=== PATIENT | male | born 1965 ===

== ENCOUNTER 2017-08-21 09:56 | Emergency (ER) | payer MEDICAID, OTHER ==
[2017-08-21 09:56] VITALS: BMI 33.0
[2017-08-21] MEDS ORDERED: Naproxen 550 mg Tab PO STA (10:15)
[2017-08-21] MEDS ORDERED: Naproxen 550 mg Tab PO ONE (10:20)
--- NOTE | 2017-08-21 10:29 | C.PDOC ---
History Of Present Illness 51 y/o male presents to ED for evaluation of sharp right posterior shoulder and upper back pain for the last 3 days. Patient states that pain radiates to his neck, and face, and associated with a tinging sensation on his right face. Pain worsens with movement of the right shoulder. Patient denies trying any OTC pain medications. He denies falls/injury, cough, fever, shortness of breath, chest pain, visual changes, sensory changes, extremity weakness, facial droop, slurred speech, headache. Time Seen by Provider: 08/21/17 10:04 Chief Complaint (Nursing): Back Pain History Per: Patient History/Exam Limitations: no limitations Onset/Duration Of Symptoms: Days (3) Current Symptoms Are (Timing): Still Present Quality Of Discomfort: Sharp, "Pain" Severity: Moderate Previous Symptoms: denies: Prior Injury Associated Symptoms: None. denies: Incontinence, New Weakness, New Numbness Exacerbating Factor(s): Movement Additional History Per: Patient Past Medical History Reviewed: Historical Data, Nursing Documentation, Vital Signs Vital Signs: Last Vital Signs Temp 98.4 F 08/21/17 11:44 Pulse 78 08/21/17 11:44 Resp 18 08/21/17 11:44 BP 137/80 08/21/17 11:44 Pulse Ox 96 08/21/17 11:44 - Medical History PMH: Cardia Arrhythmia, CHF, HTN, Hypercholesterolemia Surgical History: Back Surgery, Pacemaker (AICD/PM) - [facility] Procedures CARPAL TUNNEL RELEASE (11/22/14) EXPLOR TEND SHEATH-HAND (11/22/14) INJECT/INFUSE NEC (08/23/13) Family History: States: No Known Family Hx - Social History Hx Tobacco Use: No Hx Alcohol Use: No Hx Substance Use: No - Immunization History Hx Tetanus Toxoid Vaccination: Yes Hx Influenza Vaccination: No Hx Pneumococcal Vaccination: Yes Review Of Systems Except As Marked, All Systems Reviewed And Found Negative. Constitutional: Negative for: Fever, Chills Cardiovascular: Negative for: Chest Pain, Palpitations Respiratory: Negative for: Cough, Shortness of Breath Gastrointestinal: Negative for: Nausea, Vomiting, Abdominal Pain Musculoskeletal: Positive for: Neck Pain, Shoulder Pain (right), Back Pain ( upper) Skin: Negative for: Rash, Bruising Neurological: Positive for: Other (tingling sensation to face). Negative for: Weakness, Numbness, Change in Speech, Headache, Dizziness Physical Exam - Physical Exam Appears: Well, Non-toxic, Other (In mild pain, anxious) Skin: Warm, Dry, No Rash, Other (no tender/palpable temporal arteries) Head: Atraumatic, Normacephalic Eye(s): bilateral: Normal Inspection, PERRL, EOMI Oral Mucosa: Moist Neck: Normal ROM, No Midline Cervical Tenderness, Paracervical Tenderness ( along right trapezius muscle), No Step Off Deformity, Supple Cardiovascular: Rhythm Regular Respiratory: Normal Breath Sounds, No Rales, No Rhonchi, No Wheezing Gastrointestinal/Abdominal: Normal Exam, Bowel Sounds, Soft, No Tenderness Back: No CVA Tenderness, No Vertebral Tenderness, Muscle Spasm, Paraspinal Tenderness (right thoracic TTP at approx T3 level) Extremity: Normal ROM (FROM at right shoulder joint), Tenderness (right posterior shoulder), Capillary Refill (<2 sec all digits ), No Deformity, No Swelling Extremity: Bilateral: Normal Color And Temperature Neurological/Psych: Oriented x3, Normal Speech, Normal Cognition, Normal Motor, Normal Sensation Gait: Steady ED Course And Treatment O2 Sat by Pulse Oximetry: 95 (on RA) Pulse Ox Interpretation: Normal Progress Note: Patient given PO Naproxen and Flexeril. Reevaluation Time: 11:30 Reassessment Condition: Improved (On re-eval, patient is resting comfortably, reports improvement of pain and states he feels better. He was given Rxs for Naprosyn and Flexeril, and instructed to follow up with PMD/clinic in 1-2 days. He understands he should return to ED if symptoms worsen.) Disposition Counseled Patient/Family Regarding: Diagnosis, Need For Followup, Rx Given - Disposition Referrals: Bladimir Daniel MD [Staff Provider] - Disposition: HOME/ ROUTINE Disposition Time: 11:30 Condition: STABLE Additional Instructions: FOLLOW UP WITH YOUR DOCTOR IN 1-2 DAYS USE MEDICATIONS DIRECTED RETURN TO ER IF SYMPTOMS WORSEN Prescriptions: Cyclobenzaprine [Cyclobenzaprine HCl] 10 mg PO BID PRN #15 tab PRN Reason: Muscle Spasm Naproxen [Naprosyn Tab] 375 mg PO BID PRN #20 tab PRN Reason: pain Instructions: Cervical Radiculopathy (ED) Forms: erento (Urdu) Print Language: CITIZEN OF [place] - POA Present On Arrival: None - Clinical Impression Clinical Impression: Cervical radiculopathy - Scribe Statement The provider has reviewed the documentation as recorded by the Sonaliibe Irvin Daniels All medical record entries made by the Sonaliibe were at my direction and personally dictated by me. I have reviewed the chart and agree that the record accurately reflects my personal performance of the history, physical exam, medical decision making, and the department course for this patient. I have also personally directed, reviewed, and agree with the discharge instructions and disposition.
[2017-08-21 11:45] VITALS: BP 137/80; PULSE 78; RESP 18; TEMP 98.4
[2017-08-23 14:01] VITALS: O2SAT 95
== END 2017-08-21 11:45 | disposition home or self-care (01) ==
LOC: C.ER 09:56
DX: M54.12 Radiculopathy, cervical region (principal)

== ENCOUNTER 2018-01-28 06:14 | Day surgery (SDC) | payer OTHER ==
[2018-01-04 11:13] VITALS: BMI 33.0
[2018-01-28] MEDS ORDERED: Midazolam 2 MG/2 ML VIAL ONE (07:55)
[2018-01-28] MEDS ORDERED: Propofol 10 mg/ml Inj (20 ML) ONE (07:55)
[2018-01-28] MEDS ORDERED: Lactated Ringer's 1,000 ML IV ONE (08:00)
[2018-01-28] MEDS ORDERED: Pantoprazole 40 mg EC Tab PO STA (08:07)
--- NOTE | 2018-01-28 08:07 | CP.SDSHP ---
Same Day Surgery H & P - History Proposed Procedure: EGD Pre-Op Diagnosis: dysphagia - Previous Medical/Surgical History Cardiac: Hypertension, ASHD/CAD, Arrhythmia, Other (hyperlipidemia, ) Neuro: Backaches Previous Surgical History: Spinal surgery. Defilbrillator placement 2002, 2015 - Allergies Allergies: Allergies No Known Allergies Allergy (Verified 08/21/17 10:02) - Physical Exam Vital Signs: Vital Signs 01/28/18 06:30 Temperature 97.2 F L Pulse Rate 66 Respiratory 19 Rate Blood Pressure 129/67 O2 Sat by Pulse 100 Oximetry Mental Status: Alert & Oriented x3 Neuro: WNL Heart: WNL Lungs: WNL GI: WNL - Impression Impression: dysphagia Pt. Evaluated Today:Candidate for Anesthesia & Procedure: Yes - Date & Time Date: 01/28/18 Time: 08:07 Short Stay Discharge - Short Stay Discharge Admitting Diagnosis/Reason for Visit: DYSPHAGIA / HEARTBURN / CHRONIC ISCHEMIC HEART Disposition: HOME/ ROUTINE
[2018-01-28 08:52] VITALS: TEMP 97.1
[2018-01-28 09:45] VITALS: BP 108/67; PULSE 59; RESP 17; O2SAT 97
== END 2018-01-28 09:40 | disposition home or self-care (01) ==
LOC: C.ENDO 06:14
PROVIDERS: ATTEND Internal Medicine Gastroenterology
DX: R13.10 Dysphagia, unspecified (principal); K21.9 Gastro-esophageal reflux disease without esophagitis; K29.70 Gastritis, unspecified, without bleeding; E78.5 Hyperlipidemia, unspecified; I10 Essential (primary) hypertension; I25.10 Atherosclerotic heart disease of native coronary artery without angina pectoris
CPT/HCPCS: 43239; 88305; J2001; J2250; J2704; J3010; J7120

== ENCOUNTER 2018-04-29 06:28 | Day surgery (SDC) | payer OTHER ==
[2018-03-20 19:53] VITALS: BMI 33.0
--- NOTE | 2018-04-29 09:45 | CP.SDSHP ---
Same Day Surgery H & P - History Proposed Procedure: colonoscopy Pre-Op Diagnosis: Family h/o colon cancer/screening - Previous Medical/Surgical History Cardiac: Hypertension, ASHD/CAD, Hx of CHF, Other (hyperlipidemia, gerd, gastritis) Neuro: Backaches Previous Surgical History: Spinal surgery. AICD placement x 2 - Allergies Allergies: Allergies No Known Allergies Allergy (Verified 02/06/18 06:50) - Physical Exam Vital Signs: Vital Signs 04/29/18 07:22 Temperature 97 F L Pulse Rate 76 Respiratory 19 Rate Blood Pressure 138/72 O2 Sat by Pulse 97 Oximetry Mental Status: Alert & Oriented x3 Neuro: WNL Heart: WNL Lungs: WNL GI: WNL - {Optional Preform as Required} Other Pertinent Findings: Cardiology clearance obtained by Dr Feliz. - Impression Impression: family h/o colon cancer (brother)/screening Pt. Evaluated Today:Candidate for Anesthesia & Procedure: Yes - Date & Time Date: 04/29/18 Time: 09:46 Short Stay Discharge - Short Stay Discharge Admitting Diagnosis/Reason for Visit: SCREENING Disposition: HOME/ ROUTINE
[2018-04-29] MEDS ORDERED: Propofol 10 mg/ml Inj (20 ML) ONE ×2 (09:47)
[2018-04-29] MEDS ORDERED: Lactated Ringer's 500 ML IV SCH (10:00)
[2018-04-29 10:23] VITALS: TEMP 97.8
[2018-04-29 10:49] VITALS: O2SAT 100
[2018-04-29 11:28] VITALS: BP 136/70; PULSE 75; RESP 16
== END 2018-04-29 11:16 | disposition home or self-care (01) ==
LOC: C.ENDO 06:28
PROVIDERS: ATTEND Internal Medicine Gastroenterology
DX: D12.8 Benign neoplasm of rectum (principal); Z12.11 Encounter for screening for malignant neoplasm of colon; K57.30 Diverticulosis of large intestine without perforation or abscess without bleeding; K64.8 Other hemorrhoids; I50.9 Heart failure, unspecified; E78.5 Hyperlipidemia, unspecified; K21.9 Gastro-esophageal reflux disease without esophagitis; I11.0 Hypertensive heart disease with heart failure; I25.10 Atherosclerotic heart disease of native coronary artery without angina pectoris; Z80.0 Family history of malignant neoplasm of digestive organs; Z95.810 Presence of automatic (implantable) cardiac defibrillator
CPT/HCPCS: 45380; 88305; J2704; J3010; J7120

== ENCOUNTER 2018-05-25 07:47 | Inpatient (IN) | payer OTHER ==
[2018-05-25] MEDS ORDERED: Midazolam 2 MG/2 ML VIAL ONE (12:37)
[2018-05-25] MEDS ORDERED: ceFAZolin IV 1 gm in Dextrose 2 GM/100 ML BAG IVPB ONE (12:37)
[2018-05-25] MEDS ORDERED: Propofol 10 mg/ml Inj (20 ML) ONE (12:37)
[2018-05-25] MEDS ORDERED: Etomidate 20 mg/10ml Inj IV ONE (12:38)
[2018-05-25] MEDS ORDERED: Rocuronium 10 mg/ml (5 ml) ONE (12:44)
[2018-05-25] MEDS ORDERED: ePHEDrine 50 mg/ml Inj ONE (13:18)
[2018-05-25] MEDS ORDERED: Neostigmine Methylsulfate 3mg/3ml Syringe IV ONE (13:18)
[2018-05-25 13:44] VITALS: BMI 31.7
[2018-05-25] MEDS ORDERED: Oxycodone/Acetaminophen 5/325 mg Tab PO PRN (13:50)
[2018-05-25] MEDS: HYDROmorphone 0.5 mg/0.5 ml ISec IVP PRN ×2 (14:19→14:37)
[2018-05-25] MEDS: Dextrose 5%/0.45% NS 1,000 ML IV SCH (19:35)
[2018-05-25] MEDS: ceFAZolin 1,000 MG in Sodium Chloride 100 ML IVPB SCH (20:55)
[2018-05-25] MEDS ORDERED: PROPAFENONE HCL 225 MG PO SCH (22:00)
--- NOTE | 2018-05-26 01:40 | OP ---
PROCEDURE DATE: 05/25/2018 PREOPERATIVE DIAGNOSIS: Chronic right upper quadrant abdominal pain with bowel obstruction. POSTOPERATIVE DIAGNOSIS: Chronic right upper quadrant abdominal pain with bowel obstruction. PROCEDURE PERFORMED: Exploratory laparoscopy, laparoscopic lysis of adhesions, repair of umbilical hernia. SURGEON: Francis Almanzar MD ANESTHESIA: General. BLOOD LOSS: 30 mL. POSTOPERATIVE CONDITION: Stable. INDICATIONS FOR SURGERY This is a 52-year-old male, status post hospitalization for partial small-bowel obstruction which resolved with an NG tube. He subsequently went home, however, he has had recurrent nausea, right upper quadrant pain, seen by his radiologist and referred for a possible laparoscopic lysis of adhesions. The patient was evaluated, now was admitted for that procedure. GROSS FINDINGS: There were multiple adhesions in the right upper quadrant, mostly of the omentum to the liver. All the adhesions were taken down sharply. There was also some adhesions involving the bowel. These were also taken down. Umbilical hernia was discovered upon, cutdown, and repaired. PROCEDURE IN DETAIL: The patient was taken to the operating room, general anesthesia was administered, and the abdomen was prepped and draped. A periumbilical cut down was performed. A small incarcerated umbilical hernia was identified. The herniated preperitoneal fat was excised, and a blunt port was inserted through this area. The arm was irrigated with CO2. An epigastric and right lower quadrant ports were then placed. There were noted to be dense adhesions to the liver, and these were taken down sharply using Endoshear scissors. Once they had been taken down, the gallbladder was retracted, and the remaining adhesions to the gallbladder were also taken down. There was a couple of adhesions in the small bowel. These were also taken down sharply. There was some oozing at the end of the case but no gross bleeding, and for this reason, a drain was left in the right upper quadrant. The ports were removed. The umbilical hernia was repaired with interrupted heavy Monocryl suture, and the overlying skin was closed with subcuticular Monocryl and glue. The patient tolerated the procedure well. Returned to recovery room in stable condition. Francis Almanzar MD [facility] # [id number]
[2018-05-26] MEDS: Dextrose 5%/0.45% NS 1,000 ML IV SCH ×3 (02:30→14:01)
[2018-05-26] MEDS: ceFAZolin 1,000 MG in Sodium Chloride 100 ML IVPB SCH ×2 (05:10→13:17)
--- NOTE | 2018-05-26 06:01 | CP.PCM.PN ---
Subjective - Date & Time of Evaluation Date of Evaluation: 05/25/18 Time of Evaluation: 18:00 - Subjective Subjective: Pt seen and examined at bedside Objective - Vital Signs/Intake and Output Vital Signs (last 24 hours): Temp Pulse Resp BP Pulse Ox 98.2 F 68 20 119/64 98 05/26/18 04:00 05/26/18 04:00 05/26/18 04:00 05/26/18 04:00 05/26/18 04:00 Intake and Output: 05/25/18 05/26/18 18:59 06:59 Intake Total 550 Output Total 40 20 Balance 510 -20 - Medications Medications: Current Medications Docusate Sodium (Colace) 100 mg PO BID [facility] Last Admin: 05/25/18 19:35 Dose: 100 mg Home Med (Propafenone Hcl [Rythmol]) 225 mg PO Q12 [facility] Hydrochlorothiazide (Hydrodiuril) 25 mg PO DAILY [facility] Dextrose/Sodium Chloride (Dextrose 5%/0.45% Ns 1000 Ml) 1,000 mls @ 80 mls/hr IV .[id number] [facility] Last Admin: 05/26/18 02:30 Dose: Not Given Cefazolin Sodium 1,000 mg/ (Sodium Chloride) 100 mls @ 100 mls/hr IVPB Q8H JERAMY PRN Reason: Protocol Last Admin: 05/26/18 05:10 Dose: 100 mls/hr Ketorolac Tromethamine (Toradol) 30 mg IVP Q6 PRN PRN Reason: pain 8-10 Stop: 05/30/18 13:51 Last Admin: 05/26/18 03:10 Dose: 30 mg Losartan Potassium (Cozaar) 100 mg PO DAILY [facility] Metoprolol Succinate (Toprol Xl) 100 mg PO DAILY [facility] Ondansetron HCl (Zofran Inj) 4 mg IVP Q6 PRN PRN Reason: Nausea/Vomiting Oxycodone/Acetaminophen (Percocet 5/325 Mg Tab) 2 tab PO Q4H PRN PRN Reason: pain Stop: 05/28/18 13:51 Pantoprazole Sodium (Protonix Inj) 40 mg IVP DAILY [facility] Pantoprazole Sodium (Protonix Ec Tab) 40 mg PO DAILY [facility] Rosuvastatin Calcium (Crestor) 20 mg PO HS [facility] Last Admin: 05/25/18 21:43 Dose: 20 mg
[2018-05-26 07:28] LABS: BASO % 0.3 % (0.0-2.0); EOS # 0.1 K/uL (0.0-0.7); EOS % 1.7 % (0.0-4.0); HEMOGLOBIN 12.1 g/dL (12.0-18.0); LYMPH # 1.8 K/uL (1.0-4.3); LYMPH % 19.9 % (20.0-40.0); MEAN CELL VOLUME 86.8 fL (80.0-94.0); MEAN CORPUSCULAR HEMOGLOBIN 29.6 pg (27.0-31.0); MEAN CORPUSCULAR HGB CONC 34.1 g/dL (33.0-37.0); MEAN PLATELET VOLUME 9.3 fL (7.2-11.7); MONO # 0.9 K/uL (0.0-0.8); MONO % 9.7 % (0.0-10.0); NEUT % 68.4 % (50.0-75.0); RBC 4.08 Mil/uL (4.40-5.90); RED CELL DISTRIBUTION WIDTH 13.3 % (11.5-14.5); WHITE BLOOD COUNT 8.8 K/uL (4.8-10.8)
[2018-05-26 07:39] LABS: BLOOD UREA NITROGEN 17 mg/dL (9-20); CALCIUM 8.8 mg/dl (8.6-10.4); GFR AFRICAN-AMERICAN > 60; GFR NON-AFRICAN AMERICAN > 60
[2018-05-26 08:07] VITALS: O2SAT 94
[2018-05-26] MEDS ORDERED: Pantoprazole 40 mg EC Tab PO SCH (10:00)
[2018-05-26] MEDS ORDERED: Metoprolol Succinate 100 mg XL Tab PO SCH (10:00)
[2018-05-26] MEDS ORDERED: Magnesium Hydroxide Susp 30 ml UD PO ONE (10:16)
[2018-05-26 15:57] VITALS: BP 115/70; PULSE 75; RESP 20; TEMP 99.1
--- NOTE | 2018-05-26 21:57 | CP.PCM.DIS ---
Provider - Provider Date of Admission: 05/25/18 07:47 Attending physician: Francis Almanzar MD Time Spent in preparation of Discharge (in minutes): 45 Hospital Course - Lab Results Lab Results: Most Recent Lab Values WBC 8.8 K/uL (4.8-10.8) 05/26/18 07:17 RBC 4.08 Mil/uL (4.40-5.90) L 05/26/18 07:17 Hgb 12.1 g/dL (12.0-18.0) 05/26/18 07:17 Hct 35.4 % (35.0-51.0) 05/26/18 07:17 MCV 86.8 fL (80.0-94.0) 05/26/18 07:17 MCH 29.6 pg (27.0-31.0) 05/26/18 07:17 MCHC 34.1 g/dL (33.0-37.0) 05/26/18 07:17 RDW 13.3 % (11.5-14.5) 05/26/18 07:17 Plt Count 197 K/uL (130-400) 05/26/18 07:17 MPV 9.3 fL (7.2-11.7) 05/26/18 07:17 Neut % (Auto) 68.4 % (50.0-75.0) 05/26/18 07:17 Lymph % (Auto) 19.9 % (20.0-40.0) L 05/26/18 07:17 Harding % (Auto) 9.7 % (0.0-10.0) 05/26/18 07:17 Eos % (Auto) 1.7 % (0.0-4.0) 05/26/18 07:17 Baso % (Auto) 0.3 % (0.0-2.0) 05/26/18 07:17 Neut # (Auto) 6.0 K/uL (1.8-7.0) 05/26/18 07:17 Lymph # (Auto) 1.8 K/uL (1.0-4.3) 05/26/18 07:17 Harding # (Auto) 0.9 K/uL (0.0-0.8) H 05/26/18 07:17 Eos # (Auto) 0.1 K/uL (0.0-0.7) 05/26/18 07:17 Baso # (Auto) 0.0 K/uL (0.0-0.2) 05/26/18 07:17 Sodium 140 mmol/L (132-148) 05/26/18 07:17 Potassium 4.9 mmol/L (3.6-5.2) 05/26/18 07:17 Chloride 100 mmol/L (98-107) 05/26/18 07:17 Carbon Dioxide 33 mmol/L (22-30) H 05/26/18 07:17 Anion Gap 11 (10-20) 05/26/18 07:17 BUN 17 mg/dL (9-20) 05/26/18 07:17 Creatinine 0.9 mg/dL (0.8-1.5) 05/26/18 07:17 Est GFR ( Amer) > 60 05/26/18 07:17 Est GFR (Non-Af Amer) > 60 05/26/18 07:17 Random Glucose 108 mg/dL (75-110) 05/26/18 07:17 Calcium 8.8 mg/dl (8.6-10.4) 05/26/18 07:17 - Hospital Course Hospital Course: Pt seen and evalauted is stable for discharge Discharge Exam - Eye Exam Eye Exam: EOMI, Normal appearance, PERRL Pupil Exam: NORMAL ACCOMODATION, PERRL - ENT Exam ENT Exam: Mucous Membranes Moist - Respiratory Exam Respiratory Exam: Decreased Breath Sounds, Clear to PA & Lateral, NORMAL BREATHING PATTERN - Cardiovascular Exam Cardiovascular Exam: Irregular Rhythm, +S2 Discharge Plan - Follow Up Plan Condition: GOOD Disposition: HOME/ ROUTINE Instructions: Heart Healthy Diet, Heart Failure, Adult (DC), Hernia Repair (DC) , Abdominal Hernia Repair, Laparoscopic Surgery Additional Instructions: Follow up Dr Almanzar in 10 days Tylenol/Advil for pain Resume regular diet Referrals: Francis Almanzar MD [Staff Provider] -
== END 2018-05-26 17:30 | disposition home or self-care (01) | DRG 150 ==
LOC: C.9S 07:47 → EDSTATUS 12:30 → C.6T 13:44
PROVIDERS: ADMIT Surgery; ATTEND Surgery
PROC: 0WQF4ZZ Repair Abdominal Wall, Percutaneous Endoscopic Approach (ICD-10-PCS; 2018-05-25)
PROC: 0DN84ZZ Release Small Intestine, Percutaneous Endoscopic Approach (ICD-10-PCS; principal; 2018-05-25 13:00)
DX: K56.50 Intestinal adhesions [bands], unspecified as to partial versus complete obstruction (principal); K42.0 Umbilical hernia with obstruction, without gangrene; K66.0 Peritoneal adhesions (postprocedural) (postinfection); G89.29 Other chronic pain

== ENCOUNTER 2018-06-02 07:15 | Day surgery (SDC) | payer MEDICAID, OTHER ==
[2018-06-02 07:15] VITALS: BMI 31.7
--- NOTE | 2018-06-02 08:45 | C.PDOC ---
History Of Present Illness 52-year-old male presents to the emergency department with complaints of pain at his surgical site for the past two days, and today had some yellow discharge draining from the area. Patient is recently s/p abdominal wall hernia repair by Dr. Almanzar on 05/25. Patient states he felt fine after surgery but pain started two days ago, and has been worsening since. He denies nausea/vomiting, fever, diarrhea, or any other associated symptoms. Time Seen by Provider: 06/02/18 07:53 Chief Complaint (Nursing): Abnormal Skin Integrity History Per: Patient History/Exam Limitations: no limitations Current Symptoms Are (Timing): Still Present Quality Of Symptoms: Painful, Draining Severity: Mild Past Medical History Reviewed: Historical Data, Nursing Documentation, Vital Signs Vital Signs: Last Vital Signs Temp 97.4 F L 06/02/18 19:45 Pulse 67 06/02/18 19:45 Resp 14 06/02/18 19:45 BP 119/76 06/02/18 19:45 Pulse Ox 100 06/02/18 19:45 - Medical History PMH: Bronchitis, Cardia Arrhythmia, CHF, Gastritis, HTN, Hypercholesterolemia Surgical History: Back Surgery, Endoscopy, Pacemaker (AICD/PM) Other Surgeries: abdominal wall hernia repair - [facility] Procedures CARPAL TUNNEL RELEASE (11/22/14) EXPLOR TEND SHEATH-HAND (11/22/14) INJECT/INFUSE NEC (08/23/13) RELEASE SMALL INTESTINE, PERCUTANEOUS ENDOSCOPIC APPROACH (05/25/18) REPAIR ABDOMINAL WALL, PERCUTANEOUS ENDOSCOPIC APPROACH (05/25/18) Family History: States: Hypertension - Social History Hx Tobacco Use: No Hx Alcohol Use: No Hx Substance Use: No - Immunization History Hx Tetanus Toxoid Vaccination: Yes Hx Influenza Vaccination: No Hx Pneumococcal Vaccination: Yes Review Of Systems Constitutional: Negative for: Fever, Chills Cardiovascular: Negative for: Chest Pain, Palpitations Respiratory: Negative for: Shortness of Breath Gastrointestinal: Positive for: Abdominal Pain. Negative for: Nausea, Vomiting , Diarrhea Skin: Negative for: Rash Physical Exam - Physical Exam Appears: Well, Non-toxic, In Acute Distress (in mild discomfort ) Skin: Normal Color, Warm, Dry, No Rash Eye(s): bilateral: Normal Inspection Oral Mucosa: Moist Cardiovascular: Rhythm Regular, No Murmur Respiratory: Normal Breath Sounds, No Rales, No Rhonchi, No Wheezing Gastrointestinal/Abdominal: Bowel Sounds, Soft, No Tenderness, Other (several well healing laproscopic surgical wounds, most medial wound has eschar, is TTP with mild surrounding erythema, (+) mild induration) Neurological/Psych: Oriented x3 ED Course And Treatment - Laboratory Results Result Diagrams: 06/02/18 09:17 06/02/18 09:17 ECG: Interpreted By Me, Viewed By Me (atrial paced rhythm 73 bpm, normal axis, no acute ST/T wave changes) ECG Interpretation: No Acute Changes O2 Sat by Pulse Oximetry: 98 (RA) Pulse Ox Interpretation: Normal - Radiology CXR: Interpreted by Me, Viewed By Me CXR Interpretation: Yes: No Acute Disease, Other (AICD in place). No: Infiltrates Progress Note: Bloodwork ordered and reviewed. Patient given IV NS bolus, IV Morphine and IV Vancomycin. - Physician Consult Information Physician Contacted: Francis Almanzar Outcome Of Conversation: Discussed patient with his surgeon, he will take patient to OR for drainage of abdominal abscess/postop infection. Disposition - Disposition Disposition: HOSPITALIZED Disposition Time: 10:05 Condition: STABLE - Clinical Impression Clinical Impression: Abdominal wall abscess, Postoperative wound infection - Scribe Statement The provider has reviewed the documentation as recorded by the Scribe (Boyd Patel) All medical record entries made by the Scribe were at my direction and personally dictated by me. I have reviewed the chart and agree that the record accurately reflects my personal performance of the history, physical exam, medical decision making, and the department course for this patient. I have also personally directed, reviewed, and agree with the discharge instructions and disposition. Decision To Admit - Pt Status Changed To: Hospital Disposition Of: SDS- Endo,OR,Cath,IR - . Bed Request Type: Same Day Surgery Admitting Physician: Francis Almanzar Patient Diagnosis: Abdominal wall abscess, Postoperative wound infection
[2018-06-02] MEDS ORDERED: Morphine 4 MG/ML VIAL ONE (09:00)
[2018-06-02] MEDS ORDERED: Vancomycin 1 GM 1 GM/250 ML BAG IV STA (09:20)
[2018-06-02 09:25] LABS: BASO # 0.1 K/uL (0.0-0.2); BASO % 0.7 % (0.0-2.0); EOS # 0.3 K/uL (0.0-0.7); EOS % 3.3 % (0.0-4.0); HEMOGLOBIN 13.5 g/dL (12.0-18.0); LYMPH # 2.4 K/uL (1.0-4.3); LYMPH % 26.3 % (20.0-40.0); MEAN CELL VOLUME 85.5 fL (80.0-94.0); MEAN CORPUSCULAR HEMOGLOBIN 29.1 pg (27.0-31.0); MEAN PLATELET VOLUME 8.6 fL (7.2-11.7); MONO # 0.8 K/uL (0.0-0.8); MONO % 8.4 % (0.0-10.0); NEUT # 5.7 K/uL (1.8-7.0); NEUT % 61.3 % (50.0-75.0); NRBC % 0.1 % (0.0-2.0); RBC 4.63 Mil/uL (4.40-5.90); RED CELL DISTRIBUTION WIDTH 13.3 % (11.5-14.5); WHITE BLOOD COUNT 9.3 K/uL (4.8-10.8)
[2018-06-02 09:43] LABS: INR 1.1; PROTHROMBIN TIME 12.3 SECONDS (9.7-12.2)
[2018-06-02 09:44] LABS: ALB/GLOB RATIO 1.2 (1.0-2.1); ALBUMIN 4.3 g/dL (3.5-5.0); CALCIUM 8.9 mg/dl (8.6-10.4); GFR AFRICAN-AMERICAN > 60; GFR NON-AFRICAN AMERICAN > 60
[2018-06-02 09:45] LABS: BLOOD UREA NITROGEN 20 mg/dL (9-20)
[2018-06-02 09:46] LABS: ALT/SGPT 67 U/L (21-72); AST/SGOT 46 U/L (17-59)
[2018-06-02] MEDS ORDERED: Vancomycin 1 gm/NS 200 ml 1 GM/200 ML BAG IVPB ONE ×2 (10:00→10:15)
--- NOTE | 2018-06-02 12:13 | RAD ---
PROCEDURE: CHEST RADIOGRAPH, 1 VIEW HISTORY: preop COMPARISON: None available. FINDINGS: LUNGS: Clear. PLEURA: No pneumothorax or pleural fluid seen. CARDIOVASCULAR: Left subclavian access AICD/ pacemaker. Cardiomediastinal silhouette at the upper limits of normal in size. OSSEOUS STRUCTURES: Degenerative changes. VISUALIZED UPPER ABDOMEN: Normal. OTHER FINDINGS: None. IMPRESSION: No active disease.
[2018-06-02] MEDS ORDERED: HYDROmorphone 0.5 mg/0.5 ml ISec IVP PRN ×2 (17:23→18:58)
[2018-06-02] MEDS ORDERED: ceFAZolin IV 2 gm in Dextrose 2 GM/50 ML BAG IVPB ONE (18:27)
[2018-06-02] MEDS ORDERED: ceFAZolin IV 1 gm in Dextrose 1 GM/50 ML BAG IVPB ONE (18:27)
[2018-06-02] MEDS ORDERED: Propofol 10 mg/ml Inj (20 ML) ONE (18:33)
[2018-06-02] MEDS ORDERED: Midazolam 2 MG/2 ML VIAL ONE (18:33)
[2018-06-02] MEDS ORDERED: Lidocaine Hydrochloride 10 ML INJ ONE (18:48)
[2018-06-02] MEDS ORDERED: Oxycodone/Acetaminophen 5/325 mg Tab PO PRN ×2 (18:56→19:21)
[2018-06-02] MEDS ORDERED: Lactated Ringer's 1,000 ML IV ONE (18:56)
[2018-06-02 19:19] VITALS: RESP 14
[2018-06-02 19:42] VITALS: BP 119/76; PULSE 67
[2018-06-02 19:54] VITALS: TEMP 97.4
--- NOTE | 2018-06-03 04:04 | OP ---
PROCEDURE DATE: 06/02/2018 PREOPERATIVE DIAGNOSIS: Abdominal wound abscess. POSTOPERATIVE DIAGNOSIS: Abdominal wound abscess. PROCEDURES PERFORMED: Incision and drainage of abdominal wound abscess, excision of abdominal wound eschar. SURGEON: Francis Almanzar MD TYPE OF ANESTHESIA: IV sedation with local. BLOOD LOSS: 15 mL. POSTOPERATIVE CONDITION: Stable. DESCRIPTION OF PROCEDURE: The patient was taken to the operating room. The abdomen was prepped and draped. A right upper quadrant previous drain site eschar was excised via a #11 blade. Underlying pus was drained and cultured. The wound was irrigated with copious amounts of saline solution and packed with wet saline gauze. The patient tolerated the procedure well, returned to recovery room in stable condition. Francis Almanzar MD
[2018-06-03 07:42] VITALS: O2SAT 98
--- NOTE | 2018-06-04 21:10 | CARD ---
APPROVED REPORT EKG Measurement Heart [id number] <Conclusion> Atrial-sensed ventricular-paced rhythm Abnormal ECG
== END 2018-06-02 20:30 | disposition home or self-care (01) ==
LOC: C.ER 07:15 → C.SDS 10:05
PROVIDERS: ATTEND Surgery
DX: T81.4XXA Infection following a procedure, initial encounter (principal); L02.211 Cutaneous abscess of abdominal wall; E78.00 Pure hypercholesterolemia, unspecified; I11.0 Hypertensive heart disease with heart failure; I50.9 Heart failure, unspecified; Z95.810 Presence of automatic (implantable) cardiac defibrillator
CPT/HCPCS: 10060; 71045; 80053; 85025; 85610; 85730; 86850; 86900; 87040; 87070; 96374; 99285; J2250; J2270; J2704; J3010; J3370; J7120

== ENCOUNTER 2018-08-18 11:53 | Emergency (ER) | payer MEDICAID, OTHER ==
[2018-08-18 12:02] VITALS: BMI 38.5
[2018-08-18 12:04] VITALS: TEMP 98.8; O2SAT 96
--- NOTE | 2018-08-18 12:55 | C.PDOC ---
History Of Present Illness 52 y/o male with history of HTN and Pacemaker presents to ED with c/o left sided upper chest wall pain that radiates into left arm/shoulder and to back for 3 days worse with sitting down. Patient reports this pain feels stabbing in shoulder and axilla, and does not feel like chest pain from heart because he knows what that feels like. He states the pain is also worse with certain movements. Patient denies sob, dizziness, change in sensation, fever, chills or injury. Time Seen by Provider: 08/18/18 12:27 Chief Complaint (Nursing): Upper Extremity Problem/Injury History Per: Patient History/Exam Limitations: no limitations Onset/Duration Of Symptoms: Days Current Symptoms Are (Timing): Still Present Quality: "Pain" Past Medical History Reviewed: Historical Data, Nursing Documentation, Vital Signs Vital Signs: Last Vital Signs Temp 98.8 F 08/18/18 12:03 Pulse 68 08/18/18 13:48 Resp 12 08/18/18 13:48 BP 125/84 08/18/18 13:48 Pulse Ox 96 08/18/18 14:24 - Medical History PMH: Bronchitis, Cardia Arrhythmia, CHF, Gastritis, HTN, Hypercholesterolemia Surgical History: Back Surgery (1984), Endoscopy, Pacemaker (AICD/PM) - [facility] Procedures CARPAL TUNNEL RELEASE (11/22/14) EXPLOR TEND SHEATH-HAND (11/22/14) INJECT/INFUSE NEC (08/23/13) RELEASE SMALL INTESTINE, PERCUTANEOUS ENDOSCOPIC APPROACH (05/25/18) REPAIR ABDOMINAL WALL, PERCUTANEOUS ENDOSCOPIC APPROACH (05/25/18) Family History: States: Hypertension - Social History Hx Tobacco Use: No Hx Alcohol Use: No Hx Substance Use: No - Immunization History Hx Tetanus Toxoid Vaccination: Yes Hx Influenza Vaccination: No (2017) Hx Pneumococcal Vaccination: Yes Review Of Systems Constitutional: Negative for: Fever, Chills Cardiovascular: Positive for: Chest Pain. Negative for: Palpitations, Light Headedness Respiratory: Negative for: Cough, Shortness of Breath Gastrointestinal: Negative for: Nausea, Vomiting Musculoskeletal: Positive for: Shoulder Pain, Arm Pain. Negative for: Neck Pain Skin: Negative for: Rash Neurological: Negative for: Weakness, Numbness, Headache, Dizziness Physical Exam - Physical Exam Appears: Non-toxic, No Acute Distress Skin: Warm, Dry, No Rash Head: Atraumatic, Normacephalic Eye(s): bilateral: Normal Inspection Oral Mucosa: Moist Neck: Normal ROM, Supple Chest: Symmetrical, No Tenderness, No Ecchymosis, No Subcutaneous Emphysema, Other (pacemaker to left upper chest wall) Cardiovascular: Rhythm Regular, No Friction Rub, No Murmur Respiratory: Normal Breath Sounds, No Rales, No Rhonchi, No Wheezing Gastrointestinal/Abdominal: Soft, No Tenderness, No Guarding, No Rebound Extremity: Normal ROM, No Tenderness, No Pedal Edema, Capillary Refill (<2 seconds), No Deformity, No Swelling Pulses: Left Radial: Normal Neurological/Psych: Oriented x3, Normal Speech, Normal Motor, Normal Sensation, Other (strength symmetric in all extremities) Extremity: Right: No Drift, Left: No Drift, Upper: No Drift, Lower: No Drift ED Course And Treatment - Laboratory Results Result Diagrams: 08/18/18 12:54 08/18/18 12:54 Lab Interpretation: No Changes Compared To Prior Results ECG: Interpreted By La ECG Rhythm: AV Paced ECG Interpretation: No Acute Changes Rate From EC O2 Sat by Pulse Oximetry: 96 (RA) Pulse Ox Interpretation: Normal Medical Decision Making Medical Decision Making: Impression: Left shoulder and upper back pain Plan: * EKG * Blood work * CXR * UA * Left shoulder xray * Toradol Progress: EKG reviewed. Labs were normal, no leukocytosis or anemia, CMP WNL, troponin negative and no electrolyte abnormality. CXR shows pacemaker, otherwise no active disease. Shoulder Xray was unremarkable. Patient treated with Toradol IV and felt minimal relief. IV Morphine was ordered. On re-evaluation, the patient reports pain has much improve. He still denied chest pain or any SOB. Given patient history had labs and cardiac workup to exclude any ACS. All labs reviewed and unremarkable after 3 day history of symptoms. Based on these negative findings, the patient is stable for discharge. Advise to follow up with PMD Disposition Counseled Patient/Family Regarding: Diagnosis, Need For Followup, Rx Given - Disposition Referrals: Bladimir Daniel MD [Staff Provider] - Disposition: HOME/ ROUTINE Disposition Time: 14:22 Condition: STABLE Additional Instructions: Your labs and xray reports were normal and copies provided to you Take pain medicine as needed Advise follow up with PMD DR Daniel in few days Return to the emergency department at any time if symptoms persist or worsen. 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 - Scribe Statement The provider has reviewed the documentation as recorded by the Sonaliibnitza Martinez All medical record entries made by the Rigo were at my direction and personally dictated by me. I have reviewed the chart and agree that the record accurately reflects my personal performance of the history, physical exam, medical decision making, and the department course for this patient. I have also personally directed, reviewed, and agree with the discharge instructions and disposition.
[2018-08-18 13:00] LABS: BASO % 0.4 % (0.0-2.0); EOS # 0.2 K/uL (0.0-0.7); EOS % 2.4 % (0.0-4.0); LYMPH # 1.9 K/uL (1.0-4.3); MEAN CELL VOLUME 85.7 fL (80.0-94.0); MEAN CORPUSCULAR HEMOGLOBIN 28.8 pg (27.0-31.0); MEAN CORPUSCULAR HGB CONC 33.7 g/dL (33.0-37.0); MONO # 0.7 K/uL (0.0-0.8); MONO % 8.7 % (0.0-10.0); NEUT # 5.1 K/uL (1.8-7.0); NEUT % 64.5 % (50.0-75.0); RBC 4.86 Mil/uL (4.40-5.90); RED CELL DISTRIBUTION WIDTH 13.2 % (11.5-14.5); WHITE BLOOD COUNT 7.9 K/uL (4.8-10.8)
[2018-08-18 13:03] LABS: URINE BILIRUBIN NEGATIVE (NEGATIVE); URINE BLOOD NEGATIVE (NEGATIVE); URINE CLARITY Clear (Clear); URINE COLOR Straw (YELLOW); URINE GLUCOSE (UA) NORMAL (Normal); URINE LEUKOCYTE ESTERASE NEG Leu/uL (Negative); URINE PROTEIN NEGATIVE (NEGATIVE); URINE UROBILINOGEN NORMAL mg/dL (0.2-1.0)
[2018-08-18 13:13] LABS: ALB/GLOB RATIO 1.2 (1.0-2.1); ALBUMIN 4.5 g/dL (3.5-5.0); ALT/SGPT 42 U/L (21-72); AST/SGOT 29 U/L (17-59); BLOOD UREA NITROGEN 16 mg/dL (9-20); GFR NON-AFRICAN AMERICAN > 60
--- NOTE | 2018-08-18 13:15 | RAD ---
Date of service: 08/18/2018 HISTORY: chest pain COMPARISON: 06/02/2018. TECHNIQUE: Chest PA and lateral FINDINGS: LUNGS: No active pulmonary disease. PLEURA: No significant pleural effusion identified. No pneumothorax apparent. CARDIOVASCULAR: No radiographic findings to suggest acute or significant cardiovascular disease. Position/ configuration of pacemaker device: Satisfactory. OSSEOUS STRUCTURES: No significant abnormalities. VISUALIZED UPPER ABDOMEN: Normal. OTHER FINDINGS: None. IMPRESSION: No active disease. No significant interval change compared to the prior examination(s).
--- NOTE | 2018-08-18 13:16 | RAD ---
Date of service: 08/18/2018 PROCEDURE: Radiographs of the Left Shoulder HISTORY: pain, no trauma COMPARISON: No prior. FINDINGS: BONES: Normal. No fracture. JOINTS: Normal. Glenohumeral and acromioclavicular joints preserved. No osteoarthritis. SOFT TISSUES: Normal. OTHER FINDINGS: None. IMPRESSION: Normal radiographs of the left shoulder.
[2018-08-18 13:38] LABS: B-TYPE NATRIURETIC PEPTIDE 137 pg/mL (0-900); CK-MB 1.23 ng/mL (0.0-3.38)
[2018-08-18] MEDS ORDERED: Morphine 4 MG/ML VIAL ONE (13:48)
[2018-08-18 13:49] VITALS: BP 125/84; PULSE 68; RESP 12
--- NOTE | 2018-08-20 07:04 | CARD ---
APPROVED REPORT Date of service: 08/18/2018 EKG Measurement Heart [id number] <Conclusion> Atrial-sensed ventricular-paced rhythm Abnormal ECG
== END 2018-08-18 14:39 | disposition home or self-care (01) ==
LOC: C.ER 11:53
DX: M25.512 Pain in left shoulder (principal); E78.00 Pure hypercholesterolemia, unspecified; I50.9 Heart failure, unspecified; I10 Essential (primary) hypertension; Z95.0 Presence of cardiac pacemaker
CPT/HCPCS: 71046; 73030; 80053; 81001; 83880; 84484; 85025; 96374; 96375; 99285; J1885; J2270